=== PATIENT | male | born 1995 | race Caucasian/White ===

== ENCOUNTER 2019-12-28 10:25 | Emergency (ER) | payer BC, SELFPAY ==
[2019-12-28] VITALS (13 sets, daily range): BP systolic 135–175; BP diastolic 88–104; PULSE 100–134; RESP 14–18; TEMP 36.4; O2SAT 97–99; BMI 19.7
--- NOTE | 2019-12-28 11:04 | ED.VISSUMM ---
- ER Visit Summary Date of Service: 12/28/19 Chief Complaint: Depression and suicidal ideation History of Present Illness: The patient is a 24 M who presents with depression and suicidal ideation that began today. Patient is a poor historian. Patient does not want to say much about his depression. Patient states he does have a history of depression. Patient admits to drinking alcohol and using Adderall today. Patient will not tell me if anything in particular made him more depressed today admit him started having suicidal ideations today. Physical Examination: Vital signs are stable except for mild tachycardia of 124. Patient is afebrile. Patient is in no acute distress. Oral mucosa is pink and moist. Neck is supple. Trachea is midline. There is no JVD. Heart was regular and tachycardic. Lungs are clear and equal bilaterally. Abdomen is soft. Bowel sounds are normal. There is no tenderness. Cranial nerves II through XII are intact. There are no focal motor or sensory deficits. Extremities are intact. There is no calf tenderness or edema. Patient does have a flat affect and a depressed mood. Patient has poor eye contact. Patient admits to suicidal thoughts but will not elicit if the has a specific plan. Test Results: CBC, comprehensive metabolic profile, serum alcohol level, urine tox screen were obtained. Urine tox urine was positive for amphetamines and cannabinoids. The remaining labs were within normal limits. Emergency Department Course and Treatment: Suicide precautions were maintained. Case was discussed with crisis. He talked to the patient over the phone. 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 Crisis feels the patient needs to be admitted to psychiatric facility and will attempt to arrange that. [place] slip was filled out on the patient. Disposition: Transfer to psychiatric facility Impression: Depression with suicidal ideation This note was generated with [employer] dictation software. It may contain incorrect words, spelling, and punctuation that were not noted in review of the chart prior to signing ED Disposition - Plan for ED Patient: Disposition: Psychiatric Hospital or Unit Diagnosis: Depression with suicidal ideation Referrals: Care Physician,No Primary [Primary Care Provider] -
[2019-12-28 11:15] LABS: Absolute Lymphocyte Count 0.69 X10^3/uL (0.83-4.51); Absolute Neutrophil Count 9.8 X10^3/uL (2.0-7.7); Basophil# 0.09 X10^3/uL; Basophil% 0.8 % (0-1); Eosinophil# 0.04 X10^3/uL; Eosinophils% 0.3 % (0-5); Hematocrit 52.6 % (40-54); Hemoglobin 17.9 g/dL (13.0-16.5); Lymphocyte # 0.69 X10^3/ul (4.0); Lymphocyte % 5.8 % (19-41); Mean Corpuscular Hgb 32.1 pg (27.0-32.0); Mean Corpuscular Volume 94.4 fL (80-94); Mean Platelet Vol. 9.5 fl (6.2-12.0); Monocyte% 10.9 % (0-10); NRBC Flagged by Analyzer 0 % (0-5); Neutrophil % 81.7 % (47-70); Platelet Count 379 K/mm3 (150-450); RBC Distribution Width SD 41.3 fl (35.1-43.9); Red Blood Count 5.57 M/mm3 (4.6-6.2)
[2019-12-28 11:25] LABS: Amphetamine Urine VISTA POSITIVE (<1000 ng/mL); Barbiturate Urine VISTA NEGATIVE (< 200 ng/mL); Benzodiazepine Urine VISTA NEGATIVE (< 200 ng/mL); Cocaine Urine VISTA NEGATIVE (< 300 ng/mL); Ecstacy Urine VISTA NEGATIVE (< 500 ng/mL); Methadone Urine VISTA NEGATIVE (< 300 ng/mL); PCP Urine VISTA NEGATIVE (< 25 ng/mL); THC Urine VISTA POSITIVE (< 50 ng/mL); Vista UDS pH Range 5
[2019-12-28 11:34] LABS: Anion Gap 12 (5-15); BUN 17 mg/dL (7-18); BUN/Creat Ratio 15.6 RATIO (10-20); Calcium,Total 9.7 mg/dL (8.5-10.1); Chloride 96 mmol/L (98-107); Creatinine, Serum 1.09 mg/dL (0.70-1.30); EST Glomerular Filtration Rate 86 mL/min (>60); Est Glom Filt Rate - Afr Amer 105 mL/min (>60); Estimated Creatinine Clearance 98.49 ml/min; Glucose 119 mg/dL (74-106); Potassium 4.5 mmol/L (3.5-5.1); Sodium Level 134 mmol/L (136-145)
[2019-12-28] MEDS: LORazepam 1 MG Tablet PO (12:07)
[2019-12-28] MEDS: Phenobarbital 32.4 MG Tablet PO (12:07)
--- NOTE | 2019-12-28 12:43 | ED.RN ---
packet faxed to counseling center . counselor will call back after reviewing
--- NOTE | 2019-12-28 17:34 | ED.RN ---
LANA CALDERÓN, APOLOGIZED FOR STAFF HAVING TO SIT IN THE ROOM.
--- NOTE | 2019-12-28 19:42 | EKG12_ITS ---
Test Reason : MHC Blood Pressure : / mmHG Vent. Rate : 097 BPM Atrial Rate : 097 BPM P-R Int : 118 ms QRS Dur : 084 ms QT Int : 328 ms P-R-T Axes : 062 071 059 degrees QTc Int : 416 ms Normal sinus rhythm Normal ECG Confirmed by SHELIA LAZARO, MOIZ ([id number]), legal editor DIONTE LEON ([id number] on 12/30/2019 9:14:01 AM Referred By: BETO Confirmed By:MOIZ BASS MD
--- NOTE | 2019-12-28 19:43 | ED.RN ---
dr salazar notified [facility] requesting ekg, liver profile, note about covid sysmpton and observe for 24hrs for etoh withdrawl. aware
[2019-12-28 20:13] LABS: AST(SGOT) 42 U/L (15-37); Alanine Aminotransfer ALT/SGPT 46 U/L (16-61); Albumin, Serum 4.3 g/dL (3.2-5.0); Alkaline Phosphatase 130 U/L (45-117); Bilirubin, Direct 0.77 mg/dL (0.00-0.30); Globulin 4.1 g/dL (2.2-4.2); Protein, Total 8.4 g/dL (6.4-8.2)
[2019-12-29] VITALS (13 sets, daily range): BP systolic 132–151; BP diastolic 65–108; PULSE 65–90; RESP 14–18; TEMP 36.7–36.9; O2SAT 95–100
--- NOTE | 2019-12-29 08:21 | ED.RN ---
THIS NURSE SPOKE WITH POLO AT [facility] TO CLARIFY WHEN THE 24 HOURS FOR THE CIWA BEGAN
--- NOTE | 2019-12-29 09:27 | ED.RN ---
[facility] REQUESTING CIWA, VITAL SIGNS AND MEDICATIONS FOR 24 HOURS, LIVER ENZYMES, AND EKG
--- NOTE | 2019-12-29 13:05 | ED.RN ---
LEFT A MESSAGE AT [facility] TO CALL US TO CONFIRM THAT THEY RECEIVED INFORMATION THEY REQUESTED ON PT
--- NOTE | 2019-12-29 13:06 | ED.RN ---
POLO WITH [facility] CALLED; WILL REVIEW PTS CHART AFTER HE IS DONE WITH HIS COURT APPTS. THERE IS ONE ADMISSION BEFORE THIS PT BUT POLO ASSUMED THAT IF ALL WAS OK WITH PTS CHART HE WILL BE ADMITTED TO [facility] TODAY.
--- NOTE | 2019-12-29 14:45 | ED.RN ---
POLO WITH [facility] CALLED; EVERYTHING LOOKED GOOD WITH THIS PTS PAPERWORK. HE IS ON THE WAIT LIST FOR A BED AND IT SHOULD BE TONIGHT.
== END 2019-12-29 19:46 ==
PROVIDERS: Emergency Medicine; Emergency Provider Emergency Medicine
DX: F32.9 Major depressive disorder, single episode, unspecified (principal); R45.851 Suicidal ideations; Z72.0 Tobacco use; Z79.899 Other long term (current) drug therapy
CPT/HCPCS: 80048; 80076; 80307; 80320; 85025; 93005; 99284; G0480